=== PATIENT | female | born 1955 | race Caucasian/White ===

== ENCOUNTER → 2017-10-29 | Outpatient (CLI) | payer OTHER ==
--- NOTE | 2017-10-29 09:22 | MR ---
EXAMINATION TYPE: MR lumbar spine wo con DATE OF EXAM: 10/29/2017 COMPARISON: NONE HISTORY: Low back pain TECHNIQUE: Multiplanar, multisequence images of the lumbar spine were acquired. FINDINGS: Lumbar vertebral body heights and alignment are maintained. Bone marrow signal is slightly patchy although within normal limits. Multilevel disc desiccation is noted. Conus medullaris is unrem arkable terminating at L1. Multilevel anterior osteophytes and facet arthropathy are seen. L1-L2: There is intervertebral disc desiccation with anterior broad-based disc bulge. No neural daniel inal narrowing or spinal canal stenosis. L2-L3: There is disc desiccation without focal disc bulge or herniation. Mild facet arthropathy is no marianela. No neural foraminal narrowing or spinal canal stenosis. L3-L4: Slightly asymmetric left greater than right moderate facet arthropathy is seen as well as mild ligamentum flavum buckling. There is a small broad-based disc bulge and focal central protrusion/her niation. No significant spinal canal stenosis is seen. Mild left neural foraminal narrowing is noted. L4-L5: There is moderate facet arthropathy and a broad-based disc bulge resulting in minimal bilatera l neural foraminal narrowing. No spinal canal stenosis. L5-S1: There is a right eccentric broad-based disc bulge creating moderate right neural foraminal amanda rowing in combination with moderate facet arthropathy. Mild left neural foraminal narrowing is also p resent. No spinal canal stenosis. IMPRESSION: 1. Small central disc herniation at L3-L4 and moderate facet arthropathy, left greater than right, re sulting in mild left neural foraminal narrowing. No evidence of spinal canal stenosis at this level. 2. Right eccentric broad-based disc bulge and facet arthropathy at L5-S1 creating moderate right and mild left neural foraminal narrowing. 3. Multilevel mild degenerative disc disease of the lumbar spine as described above.
== END | disposition home or self-care (01) ==
LOC: RADMRIMAIN 08:14
PROVIDERS: ATTEND Psychiatry & Neurology Neurology
DX: M99.73 Connective tissue and disc stenosis of intervertebral foramina of lumbar region (principal); M51.27 Other intervertebral disc displacement, lumbosacral region; M51.36 Other intervertebral disc degeneration, lumbar region; M46.97 Unspecified inflammatory spondylopathy, lumbosacral region
CPT/HCPCS: 72148

== ENCOUNTER → 2018-01-26 | Outpatient (CLI) | payer OTHER ==
[2018-01-26 08:33] LABS: Basophils # (A) 0.1 k/uL (0-0.2); Basophils % (A) 0 %; Eosinophils # (A) 0.2 k/uL (0-0.7); Eosinophils % (A) 2 %; HGB 14.6 gm/dL (11.4-16.0); Lymphocytes # (A) 2.2 k/uL (1.0-4.8); Lymphocytes % (A) 17 %; MCH 28.4 pg (25.0-35.0); MCHC 31.8 g/dL (31.0-37.0); MCV 89.5 fL (80.0-100.0); Mean Platelet Volume 6.9; Monocytes # (A) 0.5 k/uL (0-1.0); Monocytes % (A) 4 %; Neutrophils # (A) 9.8 k/uL (1.3-7.7); Neutrophils % (A) 76 %; Platelet Count 252 k/uL (150-450); RBC 5.15 m/uL (3.80-5.40); RDW 12.9 % (11.5-15.5)
[2018-01-26 09:01] LABS: ALT 29 U/L (9-52); AST 17 U/L (14-36); Albumin 3.9 g/dL (3.5-5.0); Alkaline Phosphatase 70 U/L (38-126); Anion Gap 10 mmol/L; Blood Urea Nitrogen 19 mg/dL (7-17); Calcium 9.6 mg/dL (8.4-10.2); Carbon Dioxide 30 mmol/L (22-30); Chloride 103 mmol/L (98-107); Glucose 104 mg/dL (74-99); Potassium 4.6 mmol/L (3.5-5.1); Sodium 143 mmol/L (137-145); Total Bilirubin 0.4 mg/dL (0.2-1.3); Total Protein 6.2 g/dL (6.3-8.2)
[2018-01-26 18:01] LABS: Hemoglobin A1C 6.1 % (4.0-6.0)
== END | disposition home or self-care (01) ==
LOC: LABWHC1 07:56
PROVIDERS: ATTEND Nurse Practitioner Primary Care
DX: E11.9 Type 2 diabetes mellitus without complications (principal); Z79.4 Long term (current) use of insulin
CPT/HCPCS: 36415; 80053; 83036; 85025

== ENCOUNTER → 2021-09-02 | Outpatient (CLI) | payer MEDICARE, OTHER | END | disposition home or self-care (01) | LOC: LABWHC1 12:33 | PROVIDERS: ATTEND Psychiatry & Neurology Neurology | DX: Z01.812 Encounter for preprocedural laboratory examination (principal); Z20.822 Contact with and (suspected) exposure to COVID-19 | CPT/HCPCS: U0003; C9803 ==

== ENCOUNTER → 2024-07-01 | Outpatient (CLI) | payer MEDICARE, OTHER ==
[2024-07-01 15:54] LABS: T4, Free (Free Thyroxine) 0.98 ng/dL (0.80-1.80)
[2024-07-01 16:24] LABS: HCT 44.9 % (37.2-46.3); HGB 14.9 g/dL (12.0-15.0); MCH 30.7 pg (27.0-32.0); MCHC 33.2 g/dL (32.0-37.0); MCV 92.6 FL (80.0-97.0); Mean Platelet Volume 9.7 FL (9.5-12.2); NRBC Per 100 WBC 0 X 10*3/uL (0.00-0.01); Platelet Count 263 X 10*3/uL (140-440); RBC 4.85 X 10*6/uL (4.10-5.20); RDW 12.7 % (11.5-14.5); WBC 12.58 X 10*3/uL (4.50-10.00)
== END ==
LOC: LABWHC1 09:19
PROVIDERS: ATTEND Internal Medicine
DX: E05.90 Thyrotoxicosis, unspecified without thyrotoxic crisis or storm (principal)
CPT/HCPCS: 36415; 84439; 84443; 84450; 84460; 84481; 85027

== ENCOUNTER → 2024-07-07 | Outpatient (CLI) | payer MEDICARE, OTHER ==
--- NOTE | 2024-07-07 15:17 | US ---
EXAMINATION TYPE: US thyroid st tissue head/neck DATE OF EXAM: 07/07/2024 COMPARISON: NONE CLINICAL INDICATION: Female, 69 years old with history of E05.90 THYROTOXICOSIS; On thyroid meds. GLAND SIZE: Right Lobe: 4.5 x 2.4 x 2.2 cm Overall Parenchyma: heterogeneous Left Lobe: 4.3 x 2.0 x 1.7 cm Overall Parenchyma: heterogeneous Isthmus Thickness: 0.3 cm NODULES RIGHT: # of nodules measured on right: 0 LEFT: # of nodules measured on left: 2 1. 2.2 X 1.9 x 1.5 cm, lower mid, Prior size: no prior TIRADS Score: 0 TIRADS Category 1: Benign Composition: Spongiform (0 points). Recommendation: No FNA 2. 1.1 x 0.7 x 0.7 cm, upper mid, Prior size: No prior TIRADS Score: 0 TIRADS Category 1: Benign Composition: Spongiform (0 points). Recommendation: No FNA ISTHMUS: # of nodules measured in the isthmus: 0 Bilateral neck scanned, no evidence of lymphadenopathy. IMPRESSION: Left thyroid nodules that have a benign appearance. No suspicious thyroid nodules. 1. Interhemispheric glands aren't definitively correlate for thyroiditis.
== END | disposition home or self-care (01) ==
LOC: RADUSWWP 13:15
PROVIDERS: ATTEND Internal Medicine
DX: E05.90 Thyrotoxicosis, unspecified without thyrotoxic crisis or storm
CPT/HCPCS: 76536

== ENCOUNTER 2025-01-30 14:02 | Emergency (ER) | payer MEDICARE ==
--- NOTE | 2025-01-30 14:45 | ED ---
Weakness HPI - General Chief complaint: Weakness Stated complaint: weakness, unexplained weightloss Time Seen by Provider: 01/30/25 14:43 Source: patient Mode of arrival: ambulatory Limitations: no limitations - History of Present Illness Initial comments: 69-year-old female with a past medical history significant for COPD, diabetes mellitus, GERD, hyperlipidemia, hypertension and thyroid disorder presented the ER for evaluation of nausea and vomiting diarrhea. Patient reports for the past 2 weeks she has had consistent nausea, vomiting and diarrhea. She states she has been unable to keep even liquids down. She does admit to taking Mounjaro for diabetes but denies any recent increase in dosages. Patient also was endorsing upper abdominal discomfort. She denies any hematochezia, melena, hematic emesis or coffee-ground emesis. Patient reports she had Cologuard test completed months ago which was positive for occult blood. Patient is scheduled for colonoscopy in April. Patient was seen by urgent care and started on prednisone and antibiotic which have not helped symptoms. Denies any history of ulcerative colitis, Crohn's disease, diverticulitis or C. difficile. She has taken byyn-aov-nuxkeju NyQuil as she is unable to sleep at night given nausea, vomiting and diarrhea. She states as soon as something will hit her mouth she feels extremely nauseous. She denies any dizziness, lightheadedness, chest pain, shortness of breath, urinary complaints or peripheral edema. - Related Data Home Medications Medication Instructions Recorded Confirmed Cyclobenzaprine [Flexeril] 10 mg PO DAILY 11/13/14 11/13/14 Diclofenac Sodium 50 mg PO BID 11/13/14 11/13/14 Ranitidine HCl [Zantac] 150 mg PO BID 11/13/14 11/13/14 Simvastatin [Zocor] 10 mg PO DAILY 11/13/14 11/13/14 traMADol HCl [Ultram] 2 tab PO TID 11/13/14 11/13/14 Allergies Allergy/AdvReac Type Severity Reaction Status Date / Time Latex, Natural Rubber Allergy Rash/Hives Verified 01/30/25 14:07 Review of Systems ROS Statement: Those systems with pertinent positive or pertinent negative responses have been documented in the HPI. ROS Other: All systems not noted in ROS Statement are negative. 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 Absent: respiratory distress, wheezes, rales, rhonchi, stridor Cardiovascular Exam: Present: regular rate, normal rhythm, normal heart sounds. Absent: systolic murmur, diastolic murmur, rubs, gallop, clicks GI/Abdominal exam: Present: soft, tenderness (Upper quadrants), normal bowel sounds Extremities exam: Present: normal inspection, full ROM, normal capillary refill. Absent: tenderness, pedal edema, joint swelling, calf tenderness Neurological exam: Present: alert, oriented X3, CN II-XII intact Skin exam: Present: warm, dry, intact, normal color. Absent: rash Course Vital Signs 01/30/25 01/30/25 01/30/25 14:04 14:30 18:11 Temperature 97.3 F L 97.4 F L Pulse Rate 86 82 Pulse Rate [ 86 Jailkeeper ] Respiratory 16 17 Rate Blood Pressure 120/71 117/65 O2 Sat by Pulse 98 98 Oximetry EKG Findings - EKG Comments: EKG Findings:: EKG taken at 14: 51/showing a sinus rhythm. No ST segment elevations or depressions. No T wave inversions. Ventricular rate 76, HI interval 151, QRS duration 97, QT/QTc 380/415. Medical Decision Making - Medical Decision Making Was pt. sent in by a medical professional or institution (, PA, OCCUPATIONAL HEALTH COORDINATOR, urgent care, hospital, or [facility]...) When possible be specific @ -No Did you speak to anyone other than the patient for history (EMS, parent, family, police, friend...)? What history was obtained from this source @ -Significant other, at bedside, aiding in HPI and past medical history. Did you review nursing and triage notes (agree or disagree)? Why? @ -I reviewed and agree with nursing and triage notes Were old charts reviewed (outside hosp., previous admission, EMS record, old EKG, old radiological studies, urgent care reports/EKG's, [facility] records)? Report findings @ -No old charts were reviewed Differential Diagnosis (chest pain, altered mental status, abdominal pain women, abdominal pain men, vaginal bleeding, weakness, fever, dyspnea, syncope, headache, dizziness, GI bleed, back pain, seizure, CVA, palpatations, mental health, musculoskeletal)? @ -Differential Abdominal Pain Women:Appendicitis, Cholecystitis, diverticulosis, ischemic bowel, pancreatitis, hepatitis, UTI, gastroenteritis, AAA, incarcerated hernia, bowel obstruction, constipation, inflammatory bowel, hepatitis, peptic ulcer disease, splenic infarction, perforated viscus, vulvitis, ovarian torsion, PID, kidney stone, placenta abruption, this is not meant to be an all-inclusive list EKG interpreted by me (3pts min.). @ -As above X-rays interpreted by me (1pt min.). @ -None done CT interpreted by me (1pt min.). @ -CT abdomen pelvis showing no evidence of acute intra-abdominal/pelvic process. Cyst left renal upper pole. Normal appendix. U/S interpreted by me (1pt. min.). @ -None done What testing was considered but not performed or refused? (CT, X-rays, U/S, labs)? Why? @ -None What meds were considered but not given or refused? Why? @ -None Did you discuss the management of the patient with other professionals (professionals i.e. , PA, OCCUPATIONAL HEALTH COORDINATOR, lab, RT, psych nurse, executive secretary social welfare, wind turbine erector, teacher, navy airspace officer, binder caser)? Give summary @ -No Was smoking cessation discussed for >3mins.? @ -No Was critical care preformed (if so, how long)? @ -No Were there social determinants of health that impacted care today? How? (Homelessness, low income, unemployed, alcoholism, drug addiction, t ransportation, low edu. Level, literacy, decrease access to med. care, senior care, rehab)? @ -No Was there de-escalation of care discussed even if they declined (Discuss DNR or withdrawal of care, Hospice)? DNR status @ -No What co-morbidities impacted this encounter? (DM, HTN, Smoking, COPD, CAD, Cance r, CVA, ARF, Chemo, Hep., AIDS, mental health diagnosis, sleep apnea, morbid obesity)? @ -COPD, diabetes mellitus on Monjaro, GERD, hypertension, hyperlipidemia, thyroid disorder Was patient admitted / discharged? Hospital course, mention meds given and route, prescriptions, significant lab abnormalities, going to OR and other pertinent info. @ -Discharge. 69-year-old female presented the ER for evaluation of nausea, vomiting, diarrhea and abdominal pain x 2 weeks. Upon rooming, history and physical exam completed. Vitals with acceptable limits. Patient no signs of acute distress nontoxic-appearing. There is right upper quadrant and left upper quadrant abdominal tenderness noted with normal bowel sounds. No rebound or guarding. Laboratory studies showed a leukocytosis of 24.2 with a left shift likely reactive and recent steroid use. Mild transaminitis with elevated lipase at 339, amylase 138 this is believed to be due to Mounjaro use. Urine analysis with trace protein and small leukocyte esterases likely due to dehydration, no infection, sample is contaminated. Influenza, RSV and COVID-negative. C. difficile negative. As symptoms have been ongoing for 2 weeks with focal abdominal tenderness CT abd/pelvis was ordered and negative for acute intra- abdominal/pelvic process. Patient given symptomatic treatment in the emergency department with IV fluids and Zofran. Upon reevaluation, patient resting comfortably on stretcher no signs of acute distress, patient reporting improvement of symptoms no recurrent bouts of vomiting or diarrhea. Results discussed with patient, all questions answered. Patient requesting water and crackers as she is "starving", these were provided and patient tolerated oral intake well without recurrence of vomiting. Patient is eager for discharge upon reevaluation, admission was offered to patient for IV hydration, patient refused. Patient displayed medical decision-making capabilities. As patient is tolerating oral intake, symptoms controlled and she can follow-up closely with PCP she will be discharged in stable condition with the Zofran and Lomotil starter pack. I advised her to stop use of Mounjaro as this may be contributing to symptoms. Strict return parameters discussed. Patient patient verbal expressed understanding and agreement with care plan. Case discussed with ED attending, Dr. Garner. Undiagnosed new problem with uncertain prognosis? @ -No Drug Therapy requiring intensive monitoring for toxicity (Heparin, Nitro, Insulin, Cardizem)? @ -No Were any procedures done? @ -No Diagnosis/symptom? @ -Nausea, vomiting and diarrhea Acute, or Chronic, or Acute on Chronic? @ -Acute Uncomplicated (without systemic symptoms) or Complicated (systemic symptoms)? @ -Complicated Side effects of treatment? @ -No Exacerbation, Progression, or Severe Exacerbation? @ -No Poses a threat to life or bodily function? How? (Chest pain, USA, CT, pneumonia, PE, COPD, DKA, ARF, appy, cholecystitis, CVA, Diverticulitis, Homicidal, Suicidal, threat to staff... and all critical care pts) @ -Low at this time - Lab Data Result diagrams: 01/30/25 14:41 01/30/25 14:41 Lab Results 01/30/25 01/30/25 01/30/25 Range/Units 14:41 14:41 14:41 WBC 24.2 H (3.8-10.6) k/uL RBC 5.88 H (3.80-5.40) m/uL Hgb 16.7 H (11.4-16.0) gm/dL Hct 50.4 H (34.0-46.0) % MCV 85.7 (80.0-100.0) fL MCH 28.5 (25.0-35.0) pg MCHC 33.2 (31.0-37.0) g/dL RDW 13.2 (11.5-15.5) % Plt Count 359 (150-450) k/uL MPV 6.6 Neutrophils % 84 % Lymphocytes % 12 % Monocytes % 3 % Eosinophils % 0 % Basophils % 0 % Neutrophils # 20.3 H (1.3-7.7) k/uL Lymphocytes # 2.9 (1.0-4.8) k/uL Monocytes # 0.8 (0-1.0) k/uL Eosinophils # 0.1 (0-0.7) k/uL Basophils # 0.1 (0-0.2) k/uL Sodium 132 L (137-145) mmol/L Potassium 4.4 (3.5-5.1) mmol/L Chloride 99 (98-107) mmol/L Carbon Dioxide 19 L (22-30) mmol/L Anion Gap 14 mmol/L BUN 34 H (7-17) mg/dL Creatinine 0.84 (0.52-1.04) mg/dL Est GFR (CKD-EPI)AfAm 81 (>60 ml/min/1.73 sqM) Est GFR (CKD-EPI)NonAf 71 (>60 ml/min/1.73 sqM) Glucose 98 (74-99) mg/dL Plasma Lactic Acid Jatin (0.7-2.0) mmol/L Calcium 9.9 (8.4-10.2) mg/dL Total Bilirubin 1.2 (0.2-1.3) mg/dL AST 42 H (14-36) U/L ALT 71 H (4-34) U/L Alkaline Phosphatase 74 (38-126) U/L Total Protein 7.5 (6.3-8.2) g/dL Albumin 4.8 (3.5-5.0) g/dL Amylase 138 H (30-110) U/L Lipase 339 H (23-300) U/L Urine Color Yellow Urine Appearance Cloudy H (Clear) Urine pH 5.5 (5.0-8.0) Ur Specific [place] 1.022 (1.001-1.035) Urine Protein Trace H (Negative) Urine Glucose (UA) Negative (Negative) Urine Ketones Negative (Negative) Urine Blood Negative (Negative) Urine Nitrite Negative (Negative) Urine Bilirubin Negative (Negative) Urine Urobilinogen <2.0 (<2.0) mg/dL Ur Leukocyte Esterase Small H (Negative) Urine RBC 2 (0-5) /hpf Urine WBC 2 (0-5) /hpf Ur Squamous Epith Cells 14 H (0-4) /hpf Amorphous Sediment Rare H (None) /hpf Urine Mucus Rare H (None) /hpf C. difficile (EIA) Intrp (Negative) Influenza Type A (PCR) (Not Detectd) Influenza Type B (PCR) (Not Detectd) RSV (PCR) (Not Detectd) SARS-CoV-2 (PCR) (Not Detectd) 01/30/25 01/30/25 01/30/25 Range/Units 14:41 14:41 16:14 WBC (3.8-10.6) k/uL RBC (3.80-5.40) m/uL Hgb (11.4-16.0) gm/dL Hct (34.0-46.0) % MCV (80.0-100.0) fL MCH (25.0-35.0) pg MCHC (31.0-37.0) g/dL RDW (11.5-15.5) % Plt Count (150-450) k/uL MPV Neutrophils % % Lymphocytes % % Monocytes % % Eosinophils % % Basophils % % Neutrophils # (1.3-7.7) k/uL Lymphocytes # (1.0-4.8) k/uL Monocytes # (0-1.0) k/uL Eosinophils # (0-0.7) k/uL Basophils # (0-0.2) k/uL Sodium (137-145) mmol/L Potassium (3.5-5.1) mmol/L Chloride (98-107) mmol/L Carbon Dioxide (22-30) mmol/L Anion Gap mmol/L BUN (7-17) mg/dL Creatinine (0.52-1.04) mg/dL Est GFR (CKD-EPI)AfAm (>60 ml/min/1.73 sqM) Est GFR (CKD-EPI)NonAf (>60 ml/min/1.73 sqM) Glucose (74-99) mg/dL Plasma Lactic Acid Jatin 1.7 (0.7-2.0) mmol/L Calcium (8.4-10.2) mg/dL Total Bilirubin (0.2-1.3) mg/dL AST (14-36) U/L ALT (4-34) U/L Alkaline Phosphatase (38-126) U/L Total Protein (6.3-8.2) g/dL Albumin (3.5-5.0) g/dL Amylase (30-110) U/L Lipase (23-300) U/L Urine Color Urine Appearance (Clear) Urine pH (5.0-8.0) Ur Specific [place] (1.001-1.035) Urine Protein (Negative) Urine Glucose (UA) (Negative) Urine Ketones (Negative) Urine Blood (Negative) Urine Nitrite (Negative) Urine Bilirubin (Negative) Urine Urobilinogen (<2.0) mg/dL Ur Leukocyte Esterase (Negative) Urine RBC (0-5) /hpf Urine WBC (0-5) /hpf Ur Squamous Epith Cells (0-4) /hpf Amorphous Sediment (None) /hpf Urine Mucus (None) /hpf C. difficile (EIA) Intrp Negative (Negative) Influenza Type A (PCR) Not Detected (Not Detectd) Influenza Type B (PCR) Not Detected (Not Detectd) RSV (PCR) Not Detected (Not Detectd) SARS-CoV-2 (PCR) Not Detected (Not Detectd) - Radiology Data Radiology results: report reviewed, image reviewed Disposition Clinical Impression: Nausea vomiting and diarrhea Disposition: HOME SELF-CARE Condition: Stable Instructions (If sedation given, give patient instructions): Acute Nausea and Vomiting (ED) Additional Instructions: Follow-up closely with PCP. Take Zofran every 8 hours as needed for nausea. I recommend stopping Mounjaro use until follow-up with PCP as this may be contributing to symptoms. Return to the ER for any new or worsening concerns. Is patient prescribed a controlled substance at d/c from ED?: No Referrals: Valentín Hutchinson [Primary Care Provider] - 1-2 days Time of Disposition: 17:37
[2025-01-30 14:47] LABS: Basophils # (A) 0.1 k/uL (0-0.2); Basophils % (A) 0 %; Eosinophils # (A) 0.1 k/uL (0-0.7); Eosinophils % (A) 0 %; HCT 50.4 % (34.0-46.0); HGB 16.7 gm/dL (11.4-16.0); Lymphocytes # (A) 2.9 k/uL (1.0-4.8); Lymphocytes % (A) 12 %; MCH 28.5 pg (25.0-35.0); MCHC 33.2 g/dL (31.0-37.0); MCV 85.7 fL (80.0-100.0); Mean Platelet Volume 6.6; Monocytes # (A) 0.8 k/uL (0-1.0); Monocytes % (A) 3 %; Neutrophils # (A) 20.3 k/uL (1.3-7.7); Neutrophils % (A) 84 %; Platelet Count 359 k/uL (150-450); RBC 5.88 m/uL (3.80-5.40); RDW 13.2 % (11.5-15.5); WBC 24.2 k/uL (3.8-10.6)
[2025-01-30] MEDS: SODIUM CHLORIDE 0.9% 1,000 ML IV ONE (14:53)
[2025-01-30 14:54] LABS: Appearance,Urine Cloudy (Clear); Bilirubin,Urine Negative (Negative); Blood,Urine Negative (Negative); Color,Urine Yellow; Glucose,Urine (UA) Negative (Negative); Ketones,Urine Negative (Negative); Leukocyte Esterase,Urine Small (Negative); Mucus,Urine Rare /hpf; Nitrite,Urine Negative (Negative); PH, Urine 5.5 (5.0-8.0); Protein,Urine Trace (Negative); RBC,Urine 2 /hpf (0-5); Specific Gravity,Urine 1.022 (1.001-1.035); Squamous Epithelial Cell,Urine 14 /hpf (0-4); Urobilinogen,Urine <2.0 mg/dL (<2.0); WBC,Urine 2 /hpf (0-5)
[2025-01-30] MEDS: ONDANSETRON 4 MG/2 ML VIAL IVP STA (14:54)
[2025-01-30 15:06] LABS: ALT 71 U/L (4-34); African American GFR (CKD) 81 (>60 ml/min/1.73 sqM); Amylase 138 U/L (30-110); Anion Gap 14 mmol/L; Blood Urea Nitrogen 34 mg/dL (7-17); Calcium 9.9 mg/dL (8.4-10.2); Carbon Dioxide 19 mmol/L (22-30); Chloride 99 mmol/L (98-107); Glucose 98 mg/dL (74-99); Lipase 339 U/L (23-300); Non-African American GFR(CKD) 71 (>60 ml/min/1.73 sqM); Sodium 132 mmol/L (137-145); Total Bilirubin 1.2 mg/dL (0.2-1.3)
[2025-01-30 15:08] LABS: AST 42 U/L (14-36); Albumin 4.8 g/dL (3.5-5.0); Alkaline Phosphatase 74 U/L (38-126); Potassium 4.4 mmol/L (3.5-5.1); Total Protein 7.5 g/dL (6.3-8.2)
[2025-01-30 15:40] LABS: Influenza A Not Detected (Not Detectd); Influenza B Not Detected (Not Detectd); RSV Not Detected (Not Detectd)
--- NOTE | 2025-01-30 16:15 | CT ---
EXAMINATION TYPE: CT abdomen pelvis w con CT DLP: 923.7 mGycm, Automated exposure control for dose reduction was used. DATE OF EXAM: 01/30/2025 4:08 PM COMPARISON: Renal ultrasound 12/13/2004 CLINICAL INDICATION:Female, 69 years old with history of N/V/D- upper abd pain; N/V/D, upper abd pain . TECHNIQUE: Standard CT of the abdomen and pelvis following the administration of 100 cc of Isovue 3 00 IV contrast material. Coronal and sagittal reformats were performed. FINDINGS: LOWER CHEST: Unremarkable ABDOMEN LIVER: Unremarkable GALLBLADDER AND BILE DUCTS: Unremarkable. PANCREAS: Unremarkable. SPLEEN: Unremarkable. ADRENAL GLANDS: Unremarkable. KIDNEYS AND URETERS: No evidence of hydronephrosis or renal calculus. The kidneys enhance symmetrical ly. Subcentimeter cyst involving the medial aspect of the left renal upper pole. Contrast is demonstr ated within both collecting systems and proximal ureters on the delayed phase. PELVIS BLADDER: Unremarkable REPRODUCTIVE: Unremarkable. ABDOMEN & PELVIS STOMACH AND BOWEL: Stomach and duodenum are unremarkable. No focal bowel wall thickening or surroundi ng inflammatory changes. The appendix is within normal limits. No evidence of bowel obstruction. PERITONEUM: No evidence of pneumoperitoneum or free fluid. VASCULATURE: Moderate atherosclerotic calcifications are present throughout the abdominal aorta and i ts branches. No evidence of aortic aneurysm. At least mild stenosis involving the bilateral common il iac arteries. MUSCULOSKELETAL: No acute osseous abnormalities. Mild multilevel degenerative disc disease. LYMPH NODES: No evidence for lymphadenopathy. SOFT TISSUE/ABDOMINAL WALL: Focus of gas within the left anterior anterior abdominal subcutaneous tis sues likely from medication injection. IMPRESSION: No CT evidence for acute abdominal/pelvic process. [facility], , 01/30/2025 4:12 PM
[2025-01-30] MEDS: DIPHENOX-ATROP STARTER PACK 8 TAB BTL PO STA (17:55)
[2025-01-30] MEDS: ONDANSETRON 4 MG ODT STARTER PACK 2 TAB BTL PO STA (17:55)
[2025-01-30 18:13] VITALS: BP 117/65; PULSE 82; RESP 17; TEMP 97.4
[2025-01-31 11:28] LABS: Amorphous Sediment,Urine Rare /hpf
== END 2025-01-30 18:11 | disposition home or self-care (01) ==
LOC: EC 14:02
DX: R19.7 Diarrhea, unspecified (principal); Z91.040 Latex allergy status
CPT/HCPCS: 96361 ×2; 96374 ×2; 99285 ×2; 36415; 93005; 80053; 82150; 83605; 83690; 85025; 81001; 87324; 87636; 74177; J2405; S0119; Q9967

== ENCOUNTER → 2025-02-06 | Outpatient (CLI) | payer MEDICARE ==
[2025-02-06 13:40] LABS: HCT 40.2 % (37.2-46.3); HGB 13.4 g/dL (12.0-15.0); MCH 29.6 pg (27.0-32.0); MCHC 33.3 g/dL (32.0-37.0); MCV 88.7 fL (80.0-97.0); Mean Platelet Volume 9.2 fL (9.5-12.2); Platelet Count 215 10*3/uL (140-440); RBC 4.53 10*6/uL (4.10-5.20); RDW 14.1 % (11.5-14.5); WBC 15.54 10*3/uL (4.50-10.00)
[2025-02-06 15:43] LABS: T4, Free (Free Thyroxine) 0.95 ng/dL (0.80-1.80)
[2025-02-06 15:45] LABS: ALT 24 U/L (8-44); AST 19 U/L (13-35); Albumin 3.6 g/dL (3.8-4.9); Albumin/Globulin Ratio 1.71 Ratio (1.60-3.17); Alkaline Phosphatase 78 U/L (41-126); Bilirubin, Conjugated <0.20 mg/dL (0.20-0.40); Bilirubin,Unconjugated >0.20 mg/dL (0.20-1.00); Globulin 2.1 g/dL (1.6-3.3); Total Bilirubin 0.4 mg/dL (0.3-1.2); Total Protein 5.7 g/dL (6.2-8.2)
== END | disposition home or self-care (01) ==
LOC: LABWHC1 12:18
PROVIDERS: ATTEND Internal Medicine
DX: E05.90 Thyrotoxicosis, unspecified without thyrotoxic crisis or storm (principal)
CPT/HCPCS: 36415; 80076; 84439; 84443; 84481; 85027

== ENCOUNTER → 2025-05-30 | Outpatient (CLI) | payer MEDICARE ==
[2025-05-30 19:09] LABS: Basophils # (A) 0.07 X 10*3/uL (0.00-0.10); Basophils % (A) 0.6 %; Eosinophils # (A) 0.17 X 10*3/uL (0.04-0.35); Eosinophils % (A) 1.5 %; HCT 39.5 % (37.2-46.3); HGB 13.7 g/dL (12.0-15.0); Immature Grans, Automated 0.40 %; Lymphocytes # (A) 2.25 X 10*3/uL (0.90-5.00); Lymphocytes % (A) 19.3 %; MCH 32.5 pg (27.0-32.0); MCHC 34.7 g/dL (32.0-37.0); MCV 93.6 FL (80.0-97.0); Monocytes # (A) 0.81 X 10*3/uL (0.20-1.00); Monocytes % (A) 7.0 %; NRBC Per 100 WBC 0 X 10*3/uL (0.00-0.01); Neutrophils # (A) 8.30 X 10*3/uL (1.80-7.70); Neutrophils % (A) 71.2 %; Platelet Count 283 X 10*3/uL (140-440); RBC 4.22 X 10*6/uL (4.10-5.20); RDW 13.3 % (11.5-14.5); WBC 11.65 X 10*3/uL (4.50-10.00)
[2025-05-30 19:45] LABS: ALT 13 U/L (8-44); AST 16 U/L (13-35); Albumin 4.3 g/dL (3.8-4.9); Albumin/Globulin Ratio 2.53 Ratio (1.60-3.17); Alkaline Phosphatase 74 U/L (41-126); Anion Gap 12.50 mmol/L (4.00-12.00); BUN/Creat Ratio 28.20 Ratio (12.00-20.00); Blood Urea Nitrogen 28.2 mg/dL (9.0-27.0); Calcium 9.2 mg/dL (8.7-10.3); Carbon Dioxide 26.5 mmol/L (21.6-31.8); Chloride 103 mmol/L (96-109); Globulin 1.7 g/dL (1.6-3.3); Glucose 122 mg/dL (70-110); Potassium 4.3 mmol/L (3.5-5.5); Sodium 142 mmol/L (135-145); Total Protein 6.0 g/dL (6.2-8.2); Vitamin B12 431.0 pg/mL (200.0-944.0)
[2025-05-31 15:14] LABS: Calprotectin, Stool 14.7 mcg/g
== END | disposition home or self-care (01) ==
LOC: LABPRL 13:55 → LABWHC1 13:55 → EDSTATUS 13:58
PROVIDERS: ATTEND Family Medicine
DX: I10 Essential (primary) hypertension (principal); E55.9 Vitamin D deficiency, unspecified; K52.9 Noninfective gastroenteritis and colitis, unspecified; R51.9 Headache, unspecified; R41.3 Other amnesia; R26.2 Difficulty in walking, not elsewhere classified
CPT/HCPCS: 36415; 80053; 82306; 82607; 82656; 82746; 83993; 85025; 87045; 87046; 87493